=== PATIENT | male | born 1955 | race African-American/Black ===

== ENCOUNTER 2018-02-05 20:37 | Emergency (ER) | payer OTHER, SELFPAY ==
[~2018-02-05 20:37] MED LIST: Iopamidol 370 76% 100 ML VIAL ONE
[2018-02-05 21:33] LABS: ALT (SGPT) 19 U/L (8-55); AST (SGOT) 26 U/L (5-34); Albumin 4.1 g/dL (3.4-4.8); Alkaline Phosphatase 83 U/L (40-150); Anion Gap 14 mmol/L (10-20); BUN (Urea Nitrogen) 16 mg/dL (8.4-25.7); Bilirubin, Total 0.5 mg/dL (0.2-1.2); Calc. Creatinine Clearance 0 mL/min (70-130); Calcium 9.1 mg/dL (7.8-10.44); Carbon Dioxide 27 mmol/L (23-31); Chloride 103 mmol/L (98-107); Estimated GFR-MDRD 76; Globulin 3.1 g/dL (2.4-3.5); Glucose 123 mg/dL (80-115); Lipase 15 U/L (8-78); Potassium 3.6 mmol/L (3.5-5.1); Protein, Total 7.2 g/dL (5.8-8.1); Sodium 140 mmol/L (136-145)
[2018-02-05 21:40] LABS: #Basophils 0.2 thou/uL (0.0-0.2); #Eosinphils 0.2 thou/uL (0.0-0.7); #Lymphocytes 1.5 thou/uL (1.20-3.40); #Monocytes 0.9 thou/uL (0.11-0.59); #Neutrophils 8.4 thou/uL (1.40-6.50); %Basophils 1.5 % (0.0-1.0); %Eosinophils 1.9 % (0.0-10.0); %Lymphocytes 13.3 % (21.0-51.0); %Monocytes 8.2 % (0.0-10.0); %Neutrophils 75.2 % (42.0-75.0); Mean Corpuscular HGB CONC 34.5 g/dL (32.0-36.0); Mean Corpuscular Hemoglobin 28.5 pg (27.0-31.0); Mean Corpuscular Volume 82.5 fL (78.0-98.0); Mean Platelet Volume 11.3 fL (7.4-10.4); Platelet Count 150 thou/uL (130-400); RBC Distribution Width 13.3 % (11.5-14.5); Red Blood Cell (RBC) Count 5.27 mill/uL (4.70-6.10); White Blood Cell (WBC) Count 11.1 thou/uL (4.8-10.8)
--- NOTE | 2018-02-05 22:22 | CT ---
CT OF THE ABDOMEN AND PELVIS WITH IV CONTRAST 02/05/18 PROVIDED CLINICAL HISTORY: Injury. The visualized lung bases are free of significant opacity. The solid abdominal organs demonstrate an unremarkable CT appearance There is no bowel dilatation, inflammatory fat stranding, free fluid, or free air apparent. Vascular calcifications are seen. The osseous structures demonstrate no concerning lytic or blastic lesions. There is no evidence for f racture. IMPRESSION: No evidence for traumatic abnormality involving the abdomen and pelvis. POS: [facility]
--- NOTE | 2018-02-05 22:23 | RAD ---
LEFT HAND RADIOGRAPHS THREE VIEWS 02/05/18 PROVIDED CLINICAL HISTORY: Left hand pain. Status post injury. FINDINGS: There is no evidence for fracture or other acute osseous abnormality. If there is peristent clinical concern, conservative management and followup imaging are advised. IMPRESSION: As above. POS: [facility]
[2018-02-05] MEDS ORDERED: Ibuprofen 800 MG TAB ONE (22:38)
== END 2018-02-05 22:44 | disposition home or self-care (01) ==
LOC: MADERS 20:37
DX: S30.1XXA Contusion of abdominal wall, initial encounter (principal); S60.222A Contusion of left hand, initial encounter; S60.511A Abrasion of right hand, initial encounter; Z87.891 Personal history of nicotine dependence; V69.9XXA Occupant (driver) (passenger) of heavy transport vehicle injured in unspecified traffic accident, initial encounter
CPT/HCPCS: 36415; 74177; 80053; 83690; 85025